=== PATIENT | female | born 1960 | race Caucasian/White ===

== ENCOUNTER 2017-09-11 13:43 | Emergency (ER) | payer MEDICARE ==
--- NOTE | 2017-09-11 15:24 | ER Document Report ---
ED Medical Screen (RME) - General Chief Complaint: Skin Problem Stated Complaint: ABDOMINAL PAIN Time Seen by Provider: 09/11/17 15:19 Mode of Arrival: Wheelchair Information source: Patient Notes: Pt is a 57 year old female who presents to the ER today for abdominal "cellulitis" that was "misdiagnosed as a yeast infection" she thinks since July. She denies fever/chills but admits to flu like symptoms lately. she says her doctor "didn't even look at it." TRAVEL OUTSIDE OF THE [place] IN LAST 30 DAYS: No - Related Data Allergies/Adverse Reactions: hydromorphone [From Dilaudid] Allergy (Verified 09/11/17 13:58) metronidazole [From Flagyl] Allergy (Verified 09/11/17 13:58) Past Medical History - General Information source: Patient - Past Medical History Cardiac Medical History: Reports: Hx Coronary Artery Disease - [place] 2008. Patient reports her vessels were too small to hold stents Neurological Medical History: Denies: Hx Cerebrovascular Accident Endocrine Medical History: Reports: Hx Diabetes Mellitus Type 2 Past Surgical History: Reports: Hx Section, Hx Cholecystectomy Review of Systems - Review of Systems Skin: See HPI Physical Exam - Vital signs Vitals: Temp Pulse Resp BP Pulse Ox 97.6 F 72 20 122/49 L 100 09/11/17 13:59 09/11/17 13:59 09/11/17 13:59 09/11/17 13:59 09/11/17 13:59 - Notes Notes: General: morbidly obese, very large panus could not evaluate abdomen as pt is too large to fit into triage room via door and I did not want to undress her in the waiting room. Course - Vital Signs Vital signs: Temp Pulse Resp BP Pulse Ox 97.6 F 72 20 122/49 L 100 09/11/17 13:59 09/11/17 13:59 09/11/17 13:59 09/11/17 13:59 09/11/17 13:59
[2017-09-11 16:41] LABS: ABSOLUTE BASOPHILS # (AUTO) 0.1 10^3/uL (0.0-0.2); ABSOLUTE EOSINOPHILS # (AUTO) 0.2 10^3/uL (0.0-0.6); ABSOLUTE LYMPHOCYTES (AUTO) 1.2 10^3/uL (0.5-4.7); ABSOLUTE MONOCYTES (AUTO) 0.9 10^3/uL (0.1-1.4); ABSOLUTE NEUT (AUTO) 4.5 10^3/uL (1.7-8.2); BASOPHILS % (AUTO) 1.2 % (0-2); EOSINOPHILS % (AUTO) 2.5 % (0-6); HEMATOCRIT 26.9 % (36.0-47.0); HEMOGLOBIN 8.5 g/dL (12.0-15.5); LYMPHOCYTES % (AUTO) 17.4 % (13-45); MEAN CORPUSCULAR HEMOGLOBIN 23.5 pg (27.0-33.4); MEAN CORPUSCULAR HGB CONC 31.6 g/dL (32.0-36.0); MEAN CORPUSCULAR VOLUME 74 fl (80-97); MONOCYTES % (AUTO) 13.6 % (3-13); PLATELET COUNT 488 10^3/uL (150-450); RED BLOOD COUNT 3.61 10^6/uL (3.72-5.28); RED CELL DISTRIBUTION WIDTH 18.4 % (11.5-14.0); SEGMENTED NEUTROPHILS % (AUTO) 65.3 % (42-78); TOTAL CELLS COUNTED % (AUTO) 100 %; WHITE BLOOD COUNT 6.9 10^3/uL (4.0-10.5)
[2017-09-11 17:02] LABS: ALANINE AMINOTRANSFERASE 12 U/L (9-52); ALBUMIN 3.3 g/dL (3.5-5.0); ALKALINE PHOSPHATASE 48 U/L (38-126); ANION GAP 10 (5-19); ASPARTATE AMINO TRANSFERASE 19 U/L (14-36); BILIRUBIN,DIRECT 0.3 mg/dL (0.0-0.4); BILIRUBIN,TOTAL 0.3 mg/dL (0.2-1.3); BLOOD UREA NITROGEN 34 mg/dL (7-20); CALCIUM 9.2 mg/dL (8.4-10.2); CARBON DIOXIDE 29 mmol/L (22-30); CHLORIDE 101 mmol/L (98-107); GLUCOSE 119 mg/dL (75-110); POTASSIUM 5.8 mmol/L (3.6-5.0); SODIUM 139.5 mmol/L (137-145); TOTAL PROTEIN 5.8 g/dL (6.3-8.2)
[2017-09-11 19:23] LABS: APPEARANCE,URINE SLIGHTLY-CLOUDY; BILIRUBIN,URINE NEGATIVE (NEGATIVE); COLOR,URINE YELLOW; GLUCOSE, URINE NEGATIVE (NEGATIVE); KETONES,URINE NEGATIVE (NEGATIVE); LEUKOCYTE ESTERASE,URINE NEGATIVE (NEGATIVE); NITRITE,URINE NEGATIVE (NEGATIVE); PROTEIN,URINE NEGATIVE (NEGATIVE); URINE SPECIFIC GRAVITY 1.012; UROBILINOGEN,URINE NEGATIVE mg/dL (<2.0)
[2017-09-11] MEDS ORDERED: PANTOPRAZOLE SODIUM 40 MG VIAL IV ONE (20:29)
[2017-09-11] MEDS ORDERED: NORMAL SALINE 1000 ML 1,000 ML IV ONE (21:56)
--- NOTE | 2017-09-11 21:57 | ER Document Report ---
ED General - General Chief Complaint: Skin Problem Stated Complaint: ABDOMINAL PAIN Time Seen by Provider: 09/11/17 15:19 Mode of Arrival: Wheelchair Notes: Patient is a 57-year-old female who presents emergency department with a chief complaint of abdominal wall pain. Patient states that she saw her primary care doctor Ancelmo JAIN in July and told she had a yeast infection of her pannus. Patient states that she was having drainage from her vertical abdominal incision from previous that was done more than 20 years ago. She then states she went to [place] for a month and recently came home. States that she did not like her encounter with Ancelmo JAIN so she decided to come to the ER today to have it evaluated. She is complaining of diffuse abdominal wall pain with intermittent sharp stabbing pains below her incision. She admits to chronic izquierdo drainage from the site with redness and swelling over her abdomen. She feels that her skin is much more firm than normal. She otherwise admits to generalized malaise and feeling tired Primary care is with Ancelmo JAIN Past medical history significant for history of CHF, COPD, obstructive sleep apnea, morbid obesity, history of pneumonia, history of hyponatremia, history of coronary artery disease with previous [place], history of diverticulitis Past surgical history significant for 2, cholecystectomy, hernia repair Social history admits to half a pack a day smoker, denies any alcohol or drug use TRAVEL OUTSIDE OF THE [place] IN LAST 30 DAYS: No - Related Data Allergies/Adverse Reactions: hydromorphone [From Dilaudid] Allergy (Verified 09/11/17 13:58) metronidazole [From Flagyl] Allergy (Verified 09/11/17 13:58) Past Medical History - General Information source: Patient - Social History Smoking Status: Never Smoker Frequency of alcohol use: None Drug Abuse: None Family History: CAD, DM, Malignancy Patient has suicidal ideation: No Patient has homicidal ideation: No - Past Medical History Cardiac Medical History: Reports: Hx Congestive Heart Failure, Hx Coronary Artery Disease - [place] 2008. Patient reports her vessels were too small to hold stents, Hx Heart Attack Pulmonary Medical History: Reports: Hx COPD Neurological Medical History: Denies: Hx Cerebrovascular Accident Endocrine Medical History: Reports: Hx Diabetes Mellitus Type 2 Renal/ Medical History: Denies: Hx Peritoneal Dialysis Past Surgical History: Reports: Hx Section, Hx Cholecystectomy - Immunizations Hx Pneumococcal Vaccination: 09/02/10 Review of Systems - Review of Systems Constitutional: See HPI Cardiovascular: No symptoms reported Respiratory: No symptoms reported Gastrointestinal: See HPI Genitourinary: No symptoms reported Female Genitourinary: No symptoms reported -: Yes All other systems reviewed and negative Physical Exam - Vital signs Vitals: Temp Pulse Resp BP Pulse Ox 97.6 F 72 20 122/49 L 100 09/11/17 13:59 09/11/17 13:59 09/11/17 13:59 09/11/17 13:59 09/11/17 13:59 - Notes Notes: PHYSICAL EXAM GENERAL: Alert, interacts well. HEAD: Normocephalic, atraumatic. LUNGS: Clear to auscultation bilaterally, no wheezes, rales, or rhonchi. No respiratory distress. HEART: Regular rate and rhythm. No murmurs, gallops, or rubs. ABDOMEN: Morbidly obese abdomen with induration and mild erythema overlying the lower half of her pannus with a vertical incision extending from the umbilicus tender suprapubic area with evidence of chronic dehiscence and izquierdo purulent drainage. Moderate tenderness at this area no tenderness to deep palpation.No guarding, rebound, or rigidity.. Bowel sounds present in all 4 quadrants. EXTREMITIES: Moves all 4 extremities spontaneously. No edema, radial and dorsalis pedis pulses 2/4 bilaterally. No cyanosis. NEUROLOGICAL: Alert and oriented x4. Normal speech. PSYCH: Normal affect, normal mood. SKIN: Warm, dry, normal turgor. No rashes or lesions noted. Course - Re-evaluation Re-evalutation: 09/11/17 22:35 Patient is a 57-year-old female who is hemodynamically stable, no acute distress and afebrile. Consulted Dr. Lora surgeon director airport operations who recommends sending her for a CT of the abdomen and pelvis with p.o. and IV contrast to evaluate for any underlying hernia/abdominal wall abscess. Patient remains afebrile, no evidence of leukocytosis but evidence of anemia with a hemoglobin of 8.5 and hematocrit of 26. No evidence of acute blood loss. Kidney function is evidence of decrease in BUN at 43 creatinine 1.25. Patient denies any previous history of kidney problems. 09/12/17 01:59 CT shows signs consistent with panniculitis which we will continue to treat with antifungals that she has at home. Educated on wound care and will have her follow-up with the wound clinic. Hernias are stable without any evidence of obstruction. will have her f/u with [facility] tomorrow - Vital Signs Vital signs: Temp Pulse Resp BP Pulse Ox 97.6 F 74 18 118/59 L 92 09/12/17 02:53 09/12/17 02:53 09/12/17 02:53 09/12/17 02:53 09/12/17 02:53 - Laboratory Result Diagrams: 09/11/17 16:20 09/11/17 16:20 Laboratory results interpreted by me: 09/11/17 09/11/17 16:20 16:20 RBC 3.61 L Hgb 8.5 L Hct 26.9 L MCV 74 L MCH 23.5 L MCHC 31.6 L RDW 18.4 H Plt Count 488 H Monocytes % 13.6 H Potassium 5.8 H BUN 34 H Est GFR ( Amer) 53 L Est GFR (Non-Af Amer) 44 L Glucose 119 H Total Protein 5.8 L Albumin 3.3 L - Diagnostic Test Radiology reviewed: Image reviewed, Reports reviewed Discharge - Discharge Clinical Impression: Morbid obesity, Panniculitis Anemia Qualifiers: Anemia type: unspecified type Qualified Code(s): D64.9 - Anemia, unspecified Abdominal wound dehiscence Qualifiers: Encounter type: initial encounter Qualified Code(s): T81.30XA - Disruption of wound, unspecified, initial encounter Condition: Stable Disposition: HOME, SELF-CARE Instructions: Delayed Wound Closure ([facility]), Dressing Instructions for Open Wounds ([facility]) Additional Instructions: -You have evidence of panniculitis which is an infection/inflammation of your abdominal wall fat. This is likely due to your previous incision that has started to open. This will need to be followed with wound care to help heal. Please continue to use your antifungal powder prescribed by your primary care Anemia You have been found to have a significant anemia (a lower than normal amount of red blood cells). Anemia can be due to iron deficiency, vitamin deficiency, abnormal bleeding, or internal diseases. Usually, further tests are necessary to find the exact cause of the anemia. The most common cause of anemia is iron deficiency, often brought on by blood loss. This can be treated with iron supplements. If this appears to be the most likely cause, iron tablets may be prescribed even before all tests are complete. Contact the doctor at once if you note black or tarry-looking stools, bloody vomiting, shortness of breath, chest pain, or faintness. Prescriptions: Nystatin [Mycostatin Topical Powder 15 gm] 1 applic TP BID #1 bottle Referrals: [facility] [Provider Group] - Follow up tomorrow HANNAH LORA MD [STUCCO APPLICATOR] - Follow up in 1 month (For hernia evaluation)
--- NOTE | 2017-09-12 01:25 | RADIOLOGY REPORT (SQ) ---
EXAM DESCRIPTION: CT ABDOMEN AND PELVIS WITH CONTRAST CLINICAL HISTORY: panculitis with wound dehisence COMPARISON: None Available. TECHNIQUE: CT of the abdomen and pelvis are performed during IV bolus administration of 100 mL of Isovue-370. Delayed images obtained. Evaluation is somewhat suboptimal secondary to beam hardening artifact from body wall contact with the CT gantry. Oral contrast was also administered. DLP: 3414.5 mGycm FINDINGS: Abdomen: The liver has normal contour and density. Prior cholecystectomy. The spleen, pancreas, and adrenal glands are unremarkable. The kidneys have normal size and contour without evidence of solid mass or hydronephrosis. Aortoiliac atherosclerosis. IVC is unremarkable. The portal vein patent. The proximal visceral and renal arteries are patent. No free intraperitoneal air. The stomach and duodenum have normal course. Pelvis: Postoperative changes in the anterior abdominal wall. Fat-containing ventral hernia superior to the incision. There is extensive subcutaneous edema within the large anterior abdominal wall pannus. Inferior to the incision site the abdominal wall and bowel extend into the pannus. There is a small fat-containing ventral hernia at the very inferior aspect of the pannus best appreciated on the sagittal view image #87 no evidence of bowel obstruction or herniation of small bowel however evaluation is suboptimal due to extensive artifact related to body wall contact gantry and patient body habitus. No well-circumscribed rim-enhancing fluid collection to suggest abscess formation. No large adnexal masses. The urinary bladder is decompressed. No free pelvic fluid or lymphadenopathy. No dilated loops of large or small bowel. The appendix is not identified. The visualized lung bases demonstrate right basilar consolidation. No destructive bone lesions identified. Degenerative change of the spine. IMPRESSION: 1. Extensive edema within the pannus without well-circumscribed drainable fluid collection. These findings suggest panniculitis. 2. There are 2 small fat-containing ventral hernias, one superior to the incision site and one at the very inferior aspect of the abdominal wall within the pannus. No evidence of bowel obstruction. 3. Right basilar airspace opacity may be related to pneumonia or atelectasis. This exam was performed according to our departmental dose-optimization program, which includes automated exposure control, adjustment of the mA and/or kV according to patient size and/or use of iterative reconstruction technique.
[2017-09-12 03:19] VITALS: BP 118/59
== END 2017-09-12 03:23 | disposition home or self-care (01) ==
LOC: ER 13:43
DX: M79.3 Panniculitis, unspecified (principal); T81.31XA Disruption of external operation (surgical) wound, not elsewhere classified, initial encounter; Y83.8 Other surgical procedures as the cause of abnormal reaction of the patient, or of later complication, without mention of misadventure at the time of the procedure; E66.01 Morbid (severe) obesity due to excess calories; Z68.44 Body mass index [BMI] 60.0-69.9, adult; E11.9 Type 2 diabetes mellitus without complications; R10.84 Generalized abdominal pain; R53.81 Other malaise; R53.83 Other fatigue; J44.9 Chronic obstructive pulmonary disease, unspecified; I25.10 Atherosclerotic heart disease of native coronary artery without angina pectoris; I25.2 Old myocardial infarction; Z88.5 Allergy status to narcotic agent; Z88.1 Allergy status to other antibiotic agents; Z90.49 Acquired absence of other specified parts of digestive tract; D64.9 Anemia, unspecified
CPT/HCPCS: 99284; 96361; 96374; 36415; 85025; 80053; 81001; 74177; C9113; J7030; S0164